=== PATIENT | male | born 1960 | race Caucasian/White ===

== ENCOUNTER 2023-08-22 07:38 | Day surgery (SDC) | payer MEDICARE ==
[2023-08-19 14:56] LABS: Absolute Basophils 0.1 K/uL (0-0.5); Absolute Eosinophils 0.1 K/uL (0-0.5); Absolute Lymphocytes (CBC) 1.2 K/uL (0.7-4.9); Absolute Monocytes 0.6 K/uL (0.1-1.3); Absolute Neutrophil 5.9 K/uL (1.8-8.0); Basophils % 0.9 % (0-1.3); Eosinophils % 1.7 % (0-4.4); Hemoglobin 15.3 g/dL (13.6-17.9); Lymphocytes % 15.3 % (15.3-44.8); MCH 32.9 pg (27.0-35.0); MCHC 33.3 g/dL (32.0-36.0); MCV 98.7 fL (80-100); MPV 9.6 fL (7.6-11.3); Monocytes % 7.3 % (3.3-12.3); Neutrophils % 74.8 % (41.7-73.7); Platelets 250 thou/uL (152-406); RBC Red Blood Cell Count 4.66 M/uL (4.33-5.43)
[2023-08-19 15:03] LABS: PT Prothrombin Time 12.5 SECONDS (9.5-12.5); PTT, Activated Partial Thromb 36.4 SECONDS (24.3-36.9); Protime INR 1.14
[2023-08-19 15:09] LABS: Anion Gap 7.6 mEq/L (5.0-15.0); Potassium 3.6 mEq/L (3.5-5.1)
--- NOTE | 2023-08-19 15:12 | RAD REPORT ---
EXAM DESCRIPTION: RAD - Chest Pa And Lat (2 Views) - 08/19/2023 2:56 pm CLINICAL HISTORY: PRE OP, smoker, hypertension COMPARISON: <Comparisons> FINDINGS: Lines: None. Lungs: 7 mm rounded nodule in the right mid lung. No acute process in the lungs identified. Pleural: No significant pleural effusions or pneumothorax. Cardiac: The heart size is within normal limits. Mediastinum: Within normal limits. Bones: No acute fractures. Other: None IMPRESSION: No acute cardiopulmonary disease. Right midlung nodule measuring 7 millimeters. This cou ld represent the patient's nipple. Consider repeat chest radiograph with nipple markers or evaluation with chest CT.
[2023-08-22] MEDS ORDERED: LIDOCAINE HCL/EPINEPHRINE 20 ML MDV ONE (07:49)
[2023-08-22] MEDS: NA CHLORIDE 0.9% 1,000 ML ONE (08:00)
[2023-08-22] MEDS ORDERED: MIDAZOLAM HCL 2 MG/2 ML INJ ONE (08:17)
[2023-08-22] MEDS ORDERED: ONDANSETRON 4 MG/2 ML VIAL ONE (08:17)
[2023-08-22] MEDS ORDERED: LIDOCAINE 2% MPF 5 ML VIAL ONE (08:17)
[2023-08-22] MEDS ORDERED: propofoL 200 MG/20 ML VIAL IV ONE (08:17)
[2023-08-22] MEDS ORDERED: FENTANYL CITR 100 MCG/2 ML ONE (08:17)
[2023-08-22] MEDS ORDERED: dexAMETHasone 10 MG/ML VIAL ONE (08:47)
[2023-08-22] MEDS: CEFAZOLIN SODIUM 1 GM/VIAL ONE (08:50)
[2023-08-22] MEDS ORDERED: EPHEDRINE SULF 50 MG/ML VIAL ONE (08:52)
--- NOTE | 2023-08-22 09:33 | P.BOP ---
Preoperative diagnosis: ulcerated scalp subQ mass Postoperative diagnosis: same Primary procedure: Excisional biopsy of ulcerated scalp subQ mass 3x2cm Estimated blood loss: <10cc Specimen: mass Findings: mass Anesthesia: General Complications: None Transferred to: Recovery Room Condition: Good
[2023-08-22 10:05] VITALS: TEMP 97
[2023-08-22 11:02] VITALS: BP 111/71; O2SAT 96
--- NOTE | 2023-08-22 16:04 | EKG ---
Test Date: 2023-08-19 Test Time: 14:45:23 Plastic Dolls Mold Filler: CD MEASUREMENT RESULTS: Intervals: Rate: 86 [place]: 136 QRSD: 130 QT: 418 QTc: 500 [place]: P: 45 [place]: 136 QRS: -68 T: 49 INTERPRETIVE STATEMENTS: Normal sinus rhythm Right bundle branch block Left anterior fascicular block Bifascicular block Septal infarct, age undetermined Abnormal ECG No previous ECG available for comparison Electronically Signed On 08-22-23 16:03:47 CDT by Tenzin Mccullough
--- NOTE | 2023-08-22 20:54 | OP ---
Date of Procedure: 08/22/2023 Surgeon: Stephon Anna MD Preoperative Diagnosis: Ulcerated scalp subcutaneous mass. Postoperative Diagnosis: Ulcerated scalp subcutaneous mass. Procedure: Excisional biopsy of ulcerated scalp subcutaneous mass 3 x 2 cm. Estimated Blood Loss: Less than 10 cc. Specimen: Mass. Anesthesia: General plus local. Complications: None. Indications: This is a case of a 63-year-old patient who came to us with this mass, which is not onl y going deep in the scalp, but also protruding almost like a horn like structure. He wants that exci sed. It is giving him pain, discomfort, bleeding. The benefits, alternatives, and risks of excision al biopsy, wide excision fully explained, which include, but not limited to, infection, bleeding, dam age to adjacent structures, anesthesia complication, recurrence, OH, and even . He also underst ands this may not relieve any symptoms. He might need more than one surgical intervention. He under stands the chance of alopecia in that area. He signed a consent. The area of concern was marked by me and the patient in the holding room. Description Of Procedure: Patient was brought to the operating room, placed in supine position. Ane sthesia was done without complications. Scalp area was prepped and draped in the usual sterile fashi on. Local anesthesia was applied followed by a wedge incision of the skin. Incision was carried brittany n to the galea. The mass was completely excised. Area was irrigated. Hemostasis was obtained and t hen we proceeded to close this with a combination of suture mattress 2-0 nylon interrupted multiple t imes. Patient tolerated the procedure well. No bleeding. The area was covered with sterile dressin gs. Patient sent to Recovery in stable condition. RHETT/VIKI Voice ID: [id number] Report ID: [id number]
--- NOTE | 2023-08-22 20:54 | DS ---
Date of Discharge: 08/22/2023 Diagnosis: Ulcerated scalp subcutaneous mass. Procedure: Excisional biopsy of ulcerated scalp subcutaneous mass. Disposition: Home. Condition: Stable. Activity: As tolerated. No heavy lifting. Plan: Follow up in my office in 1 week. Call for an appointment at [phone]. Keep area dry for 48 hours, then may shower. KEVIN Voice ID: [id number] Report ID: [id number]
== END 2023-08-22 10:37 | disposition home or self-care (01) ==
LOC: OR 07:38
PROVIDERS: ATTEND Surgery
PROC: 0HB0XZZ Excision of Scalp Skin, External Approach (ICD-10-PCS; principal; 2023-08-22 08:30)
DX: C44.42 Squamous cell carcinoma of skin of scalp and neck (principal); I10 Essential (primary) hypertension; E78.5 Hyperlipidemia, unspecified; F17.210 Nicotine dependence, cigarettes, uncomplicated
CPT/HCPCS: 93005; 85025; 80048; 36415; 85610; 82947 ×2; 88304; 85730; 71046; 11623; J2704; J2001; J3010; J1100; J2405; J7030; J0690; 88305; J2250

== ENCOUNTER 2024-03-14 15:43 | Inpatient (IN) | payer MEDICARE ==
--- NOTE | 2024-03-14 17:06 | RAD REPORT ---
EXAM: CT brain without contrast HISTORY: PAIN COMPARISON: None TECHNIQUE: Multiple contiguous axial images were obtained and a CT of the brain without contrast. Sag ittal and coronal reformats were performed. One or more of the following dose reduction techniques were used: Automated exposure control, adjust ment of the mA and/or kV according to patient size, and/or iterative reconstruction. FINDINGS: No evidence of hydrocephalus, intracranial hemorrhage, or extra-axial fluid collection. Moderate brain atrophy with moderate periventricular and deep white matter chronic microvascular isc hemic changes present. No evidence of midline shift or areas of brain edema. The calvarium is intact. The visualized paranasal sinuses and mastoid air cells are essentially clear . IMPRESSION: No evidence of acute intracranial abnormality. EXAM: CT of the cervical spine without contrast HISTORY: Neck pain, injury PAIN TECHNIQUE: Multiple contiguous axial images were obtained in a CT of the cervical spine without contr ast. Sagittal and coronal reformats were performed. FINDINGS: The vertebral bodies demonstrate normal height and alignment. No evidence of acute fracture or subluxation.. Mild lower cervical degenerative change. No prevertebral soft tissue swelling is seen. The posterior facets are well aligned. Normal alignment of the skull base with the cervical spine is seen. The lung apices are unremarkable. IMPRESSION: No evidence of acute osseous abnormality of the cervical spine.
--- NOTE | 2024-03-14 17:07 | RAD REPORT ---
EXAMINATION: ONE VIEW CHEST XR CLINICAL INDICATION: DYSPNEA TECHNIQUE: Frontal chest projection is submitted. Examination is limited by patient positioning and t echnique. COMPARISON: 08/19/2023 FINDINGS: Small calcified nodule in the right midlung is stable. Lungs otherwise clear. The heart is normal in size. No displaced fractures identified. IMPRESSION: No acute intrathoracic abnormalities.
--- NOTE | 2024-03-14 17:20 | RAD REPORT ---
EXAMINATION: CT LUMBAR SPINE WITHOUT CONTRAST CLINICAL INDICATION: Male, 63 years old. WEAKNESS TECHNIQUE: Axial CT images were obtained through the lumbar spine in soft tissue and bone windows wit hout intravenous contrast. Coronal and Sagittal reformatted images were created from the data set. One or more of the following dose reduction techniques were used: Automated exposure control, adjustm ent of the mA and/ or kV according to patient size, and/or iterative reconstruction. Unless otherwise specified, incidental findings do not require dedicated imaging follow-up. COMPARISON: No prior exam. FINDINGS: For purposes of this dictation, it is assumed that there are 5 non rib-bearing lumbar type vertebrae, and the most caudal fully segmented lumbar vertebra is labeled L5. ALIGNMENT: The lumbar spine demonstrates normal alignment without scoliosis or spondylolisthesis. BONES: No significant soft tissue abnormalities. No aggressive osseous lesions. DISCS: Multilevel vacuum disc degeneration is seen in the lower lumbar levels. LEVELS: Large calcified disc bulges are present L4-5 and L5-S1. This results in significant canal donnell rowing at the lower levels of the lumbar spine. SOFT TISSUE: Prominent sigmoid diverticulosis coli without diverticulitis. Bilateral iliac stents are in place. IMPRESSION: No acute lumbar spine abnormalities. Significant degenerative changes detailed lower lumbar spine with prominent hard discs.
[2024-03-14 17:36] LABS: Albumin 3.2 g/dL (3.4-5.0); Albumin/Globulin Ratio 0.8 (1.1-1.8); Anion Gap 5.7 mEq/L (5.0-15.0); Bilirubin Direct 0.2 mg/dL (0-0.2); Bilirubin Indirect, Calculated 0.7 mg/dL (0.2-0.8); Bilirubin Total 0.9 mg/dL (0.2-1.0); Globulin 3.8 g/dL (2.3-3.5); Potassium 3.7 mEq/L (3.5-5.1)
[2024-03-14 17:52] LABS: Troponin High Sensitivity 193.1 pg/mL (<58.9)
[2024-03-14 17:54] LABS: Absolute Basophils 0.1 K/uL (0-0.5); Absolute Eosinophils 0.2 K/uL (0-0.5); Absolute Lymphocytes (CBC) 0.9 K/uL (0.7-4.9); Absolute Monocytes 0.7 K/uL (0.1-1.3); Absolute Neutrophil 6.6 K/uL (1.8-8.0); Basophils % 0.8 % (0-1.3); Eosinophils % 1.8 % (0-4.4); Hematocrit 32.7 % (39.6-49.0); Hemoglobin 10.5 g/dL (13.6-17.9); MCH 28.8 pg (27.0-35.0); MCHC 32.2 g/dL (32.0-36.0); MCV 89.6 fL (80-100); MPV 9.5 fL (7.6-11.3); Monocytes % 8.3 % (3.3-12.3); Neutrophils % 78.1 % (41.7-73.7); Platelets 200 thou/uL (152-406); RBC Red Blood Cell Count 3.64 M/uL (4.33-5.43); Red Cell Distribution Width 16.1 % (12.1-15.2)
[2024-03-14] MEDS ORDERED: ONDANSETRON 4 MG (ODT) TAB PO PRN (19:36)
--- NOTE | 2024-03-14 19:50 | P.HP ---
Certification for Inpatient Patient admitted to: Observation With expected LOS: <2 Midnights Practitioner: I am a practitioner with admitting privileges, knowledge of patient current condition, hospital course, and medical plan of care. Services: Services provided to patient in accordance with Admission requirements found in Title 42 Section 412.3 of the Code of Federal Regulations Patient History Date of Service: 03/14/24 Reason for admission: elevated troponin, general weakness, REEMA History of Present Illness: 63-year-old man with a past medical history significant for COPD and diabetes presented to the emergency room complaining of falls that began 3 days ago. The patient is alert and oriented x 3. He reports several unwitnessed falls over the last 3 days. Today, the patient states his neighbor found him after a fall and helped him to the hospital. Patient resides alone, and states he has not been eating or drinking as of late because he feels "weak". He denies loss of consciousness with all falls. Head CT, CT of C-spine, and CT of L-spine performed in the emergency department revealed no abnormalities. Also, the patient was found to have elevated troponin this visit, but denies chest pain at this time. Allergies No Known Allergies Allergy (Unverified 08/19/23 14:20) Home medications list reviewed: Yes Home Medications: Atorvastatin Calcium [Lipitor] 40 mg PO BEDTIME 08/19/23 Carisoprodol [Soma] 350 mg PO BEDTIME PRN PRN 08/19/23 Clopidogrel Bisulfate [Plavix] 75 mg PO DAILY 08/19/23 Cyclobenzaprine HCl [Flexeril] 5 mg PO BEDTIME PRN PRN 08/19/23 Gabapentin 300 mg PO DAILY 08/19/23 Glipizide [Glipizide ER] 10 mg PO DAILY 08/19/23 Losartan Potassium [Cozaar] 50 mg PO DAILY 08/19/23 Pioglitazone HCl [Actos] 30 mg PO DAILY 08/19/23 Codeine/APAP [Tylenol W/Codeine #3 tab] 1 tab PO Q6HP PRN #1 tab 08/22/23 - Past Medical/Surgical History -: COPD -: DM Past Surgical History: Patient denies surgical history - Social History Smoking Status: Unknown if ever smoked Alcohol use: No Review of Systems General: Weakness Musculoskeletal: Arm Pain, Leg Pain Neurological: Weakness Physical Examination - Vital Signs Temperature: 98 F Blood Pressure: 127/76 Pulse: 92 Respirations: 18 Pulse Ox (%): 100 - Physical Exam General: Alert, Oriented x3 HEENT: Atraumatic, Normocephalic Neck: JVD not distended Respiratory: Normal air movement Cardiovascular: No gallops, No rubs, No murmurs Gastrointestinal: Normal bowel sounds, Non-distended Musculoskeletal: No swelling, No tenderness, No warmth Integumentary: Other (bruising noted in RUE and right leg consistent with recent fall history) Neurological: Normal speech, Normal strength at 5/5 x4 extr (except LLE- 4+/5), Sensation intact - Studies Laboratory Data (last 24 hrs) 03/14/24 03/14/24 17:44 17:02 WBC 8.40 Hgb 10.5 L Hct 32.7 L Plt Count 200 Sodium 138 Potassium 3.7 BUN 28 H Creatinine 1.54 H Glucose 108 H Total Bilirubin 0.9 AST 20 ALT 16 Alkaline Phosphatase 115 Assessment and Plan - Problems (Diagnosis) (1) Elevated troponin Current Visit: Yes Status: Acute (2) REEMA (acute kidney injury) Current Visit: Yes Status: Acute (3) Weakness generalized Current Visit: Yes Status: Acute - Plan Elevated troponin: Admit to observation with telemetry Will trend troponin Cardiology consulted REEMA: Elevated creatinine, will continue to trend Maintenance IV fluids CPK pending to rule out rhabdomyolysis General weakness: PT/OT consulted Heart healthy diet - Advance Directives Does patient have a Living Will: No Does patient have a Durable POA for Healthcare: No - Code Status/Comfort Care Code Status: Full Code
[2024-03-14] MEDS: NA CHLORIDE 0.9% 1,000 ML IV SCH (20:00)
--- NOTE | 2024-03-14 20:02 | ER ---
Nurse's Notes [facility] Name: Jake Laguerre Age: 63 yrs Sex: Male : 1960 Arrival Date: 03/14/2024 Time: 15:43 Bed 18 Private MD: Diagnosis: Muscle weakness (generalized);Acute kidney failure, unspecified;Fall on same level, unspecified Presentation: 03/14 15:51 Chief complaint: EMS states: patient having generalized weakness and multiple falls ko1 over last 3 days. Coronavirus screen: At this time, the client does not indicate any symptoms associated with coronavirus-19. Ebola Screen: No symptoms or risks identified at this time. Initial Sepsis Screen: Does the patient meet any 2 criteria? No. Patient's initial sepsis screen is negative. Does the patient have a suspected source of infection? No. Patient's initial sepsis screen is negative. Risk Assessment: Do you want to hurt yourself or someone else? Patient reports no desire to harm self or others. Onset of symptoms is unknown. Care prior to arrival: Medication(s) given: Normal saline infusion, 500 mL, IV initiated. 18 GA, in the right forearm, Glucose check: 179 Oxygen administered. via nasal cannula. 15:51 Method Of Arrival: EMS: [facility] ko1 15:51 Acuity: ALHAJI 3 ko1 Triage Assessment: 15:52 General: Appears unkempt, Behavior is cooperative, appropriate for age. Pain: Complains ko1 of pain in all over. EENT: No deficits noted. Neuro: Reports weakness in generalized. Cardiovascular: No deficits noted. Respiratory: No deficits noted. GI: No deficits noted. : No deficits noted. Derm: Bruising that is. Derm: multiple skin tears and bruises from falls. Musculoskeletal: Circulation, motion, and sensation intact. Injury Description: Bruise. Historical: - Allergies: 15:52 No Known Allergies; ko1 - PMHx: 15:52 Diabetes mellitus; ko1 - PSHx: 15:52 Unable to Obtain; ko1 - Immunization history:: Adult Immunizations unknown. - Infectious Disease History:: Denies. - Social history:: Smoking status: Patient reports the use of cigarette tobacco products, smokes two packs cigarettes per day. - History obtained from: EMS. Screenin:59 [facility] ED Fall Risk Assessment (Adult) History of falling in the last 3 months, ko1 including since admission Yes- fall prone (multiple falls) (3 pts) Confusion or Disorientation No (0 pts) Intoxicated or Sedated No (0 pts) Impaired Gait Yes (1 pt) Mobility Assist Device Used Yes (1 pt) Altered Elimination No (0 pt) Score/Fall Risk Level 3 or more points = High Risk Oriented to surroundings, Maintained a safe environment, Educated pt \T\ family on fall prevention, incl call for assistance when getting out of bed, Assessed \T\ reinforced patient's understanding of fall precautions, Provided non-skid footwear, Hourly rounding (assess needs \T\ fall precautionary measures) done, Used ambulatory aids as needed (educated on \T\ assisted with), Remained w/in arm's length of patient and in sight while toileting, Offered frequent toileting (1:1 observation), Remained with patient while ambulating, Utilized family, sitter, or virtual project manager as indicated. Abuse screen: Denies threats or abuse. Denies injuries from another. Nutritional screening: No deficits noted. Tuberculosis screening: No symptoms or risk factors identified. Assessment: 15:59 Reassessment: see triage note. ko1 20:57 Reassessment: Patient appears in no apparent distress at this time. Patient and/or bm8 family updated on plan of care and expected duration. Pain level reassessed. Patient is alert, oriented x 3, equal unlabored respirations, skin warm/dry/pink. Patient states feeling better. Patient states symptoms have improved. General: Appears in no apparent distress. comfortable. Neuro: No deficits noted. Level of Consciousness is awake, alert, obeys commands, Oriented to person, place, situation, Appropriate for age. Cardiovascular: Denies chest pain, Capillary refill < 3 seconds in bilateral fingers toes. Musculoskeletal: Reports pain in back Pain is 4 out of 10 on a pain scale. 22:24 Reassessment: pt is resting with eyes closed breathing is even unlabored at this time bm8 with symmetrical rise and fall of chest. Patient denies pain at this time. Vital Signs: 15:51 BP 142 / 87; Pulse 97; Resp 15; Temp 98.7(O); Pulse Ox 100% on R/A; ko1 16:15 BP 141 / 72; Pulse 92; Resp 16; Pulse Ox 96% on R/A; ko1 17:00 BP 154 / 83; Pulse 93; Resp 18; Pulse Ox 97% ; ko1 17:30 BP 134 / 80; Pulse 94; Resp 15; Pulse Ox 98% ; ko1 18:00 BP 135 / 81; Pulse 79; Resp 16; Pulse Ox 94% ; ko1 18:30 BP 145 / 68; Pulse 89; Resp 15; Pulse Ox 98% ; ko1 20:57 BP 148 / 83; Pulse 98; Resp 20; Temp 98.7; Pulse Ox 95% ; Pain 4/10; bm8 22:24 BP 144 / 77; Pulse 92; Resp 17; Temp 98.7; Pulse Ox 100% ; Pain 0/10; bm8 20:57 Pain Scale: Adult bm8 22:24 Pain Scale: Adult bm8 Birdie Coma Score: 20:57 Eye Response: spontaneous(4). Motor Response: obeys commands(6). Verbal Response: bm8 oriented(5). Total: 15. 22:24 Eye Response: spontaneous(4). Motor Response: obeys commands(6). Verbal Response: bm8 oriented(5). Total: 15. ED Course: 15:50 Patient arrived in ED. ko1 15:51 Tamica Coley, PHYLLIS is Primary Nurse. ko1 15:52 Triage completed. ko1 15:52 Arm band placed on right wrist. Patient placed in an exam room, on a stretcher, on ko1 horticulture teacher, on pulse oximetry, Patient notified of wait time. 15:56 Ryan Sue MD is Attending Physician. rn 15:57 Attending Physician role handed off by Ryan Sue MD ci 15:57 Nikita Salgado is Attending Physician. ci 15:59 Patient has correct armband on for positive identification. Fall risk band placed. ko1 Placed in gown. Bed in low position. Call light in reach. Side rails up X2. Provided Education on: labs, tests. Client placed on continuous cardiac and pulse oximetry monitoring. NIBP monitoring applied. equipment service associate on. Door closed. Noise minimized. Lights dimmed. Warm blanket given. Pillow given. 15:59 Maintain EMS IV. Dressing intact. Good blood return noted. Site clean \T\ dry. Gauge \T\ ko 1 site: 18g right FA. 16:43 CT Lumbar Spine Wo Con In Process Unspecified. EDMS 16:43 CT Head C Spine In Process Unspecified. EDMS 16:52 XRAY Chest (1 view) In Process Unspecified. EDMS 19:04 No provider procedures requiring assistance completed. ko1 19:58 Odilon Alexander MD is Hospitalizing Provider. ci 20:57 Patient admitted, IV remains in place. bm8 Administered Medications: 20:51 Drug: Aspirin PO 325 mg PO once Route: PO; mt4 20:59 Follow up: Response: No adverse reaction bm8 Medication: 18:30 VIS not applicable for this client. ko1 Outcome: 20:01 Decision to Hospitalize by Provider. ci 22:24 Admitted to ER Hold. Please see [facility] for further documentation. bm8 22:24 Condition: stable 22:24 Instructed on the need for admit, Demonstrated understanding of instructions, follow-up care, medications, 03/15 03:50 Patient left the ED. cp4 Signatures: Dispatcher [employer] EDGA Ryan Sue MD MD rn Oliver, Kathy RN RN ko1 Tierra Foster cp4 Nikita Salgado Ronan Mcgovern RN RN bm8 Josse Lou, RN RN mt4 Corrections: (The following items were deleted from the chart) 03/14 15:56 15:52 PMHx: Diabetes mellitus; ko1 ko1
--- NOTE | 2024-03-14 20:02 | EDPHYS ---
Physician Documentation [facility] Name: Jake Laguerre Age: 63 yrs Sex: Male : 1960 Arrival Date: 03/14/2024 Time: 15:43 Bed 18 Private MD: ED Physician Nikita Salgado HPI: 03/14 19:11 This 63 yrs old Male presents to ER via EMS with complaints of General Weakness. ci 19:11 Is a 63-year-old male with PMH diabetes, hyperlipidemia, BPH who presents to the ED ci with chief complaint of generalized weakness and frequent falls that began 3 days ago. Patient reports his leg gives out and he falls. Positive head strike, no LOC, not on blood thinners. Patient denies any chest pain, shortness of breath, nausea/vomiting. Historical: - Allergies: 15:52 No Known Allergies; ko1 - PMHx: 15:52 Diabetes mellitus; ko1 - PSHx: 15:52 Unable to Obtain; ko1 - Immunization history:: Adult Immunizations unknown. - Infectious Disease History:: Denies. - Social history:: Smoking status: Patient reports the use of cigarette tobacco products, smokes two packs cigarettes per day. - History obtained from: EMS. ROS: 19:11 Constitutional: Positive for fatigue, Negative for body aches, fever, ci 19:11 Cardiovascular: Negative for chest pain, edema, palpitations, 19:11 Respiratory: Negative for shortness of breath, wheezing, 19:11 Abdomen/GI: Negative for abdominal pain, nausea, vomiting, and diarrhea, 20:02 Neuro: Negative for headache, weakness, numbness, tingling, and seizure, ci Exam: 19:11 Constitutional: This is a well developed, well nourished patient who is awake, alert, ci and in no acute distress. Head/Face: Normocephalic, atraumatic. Eyes: Pupils equal round and reactive to light, extra-ocular motions intact. Lids and lashes normal. Conjunctiva and sclera are non-icteric and not injected. Cornea within normal limits. Periorbital areas with no swelling, redness, or edema. ENT: Nares patent. No nasal discharge, no septal abnormalities noted. Tympanic membranes are normal and external auditory canals are clear. Oropharynx with no redness, swelling, or masses, exudates, or evidence of obstruction, uvula midline. Mucous membranes moist. Skin: Warm, dry with normal turgor. Normal color with no rashes MS/ Extremity: Pulses equal, no cyanosis. Neurovascular intact. Full, normal range of motion. Neuro: Awake and alert, GCS 15, oriented to person, place, time, and situation. Cranial nerves II-XII grossly intact. Motor strength 5/5 in all extremities. Sensory grossly intact. Cerebellar exam normal. Normal gait. Vital Signs: 15:51 BP 142 / 87; Pulse 97; Resp 15; Temp 98.7(O); Pulse Ox 100% on R/A; ko1 16:15 BP 141 / 72; Pulse 92; Resp 16; Pulse Ox 96% on R/A; ko1 17:00 BP 154 / 83; Pulse 93; Resp 18; Pulse Ox 97% ; ko1 17:30 BP 134 / 80; Pulse 94; Resp 15; Pulse Ox 98% ; ko1 18:00 BP 135 / 81; Pulse 79; Resp 16; Pulse Ox 94% ; ko1 18:30 BP 145 / 68; Pulse 89; Resp 15; Pulse Ox 98% ; ko1 20:57 BP 148 / 83; Pulse 98; Resp 20; Temp 98.7; Pulse Ox 95% ; Pain 4/10; bm8 22:24 BP 144 / 77; Pulse 92; Resp 17; Temp 98.7; Pulse Ox 100% ; Pain 0/10; bm8 20:57 Pain Scale: Adult bm8 22:24 Pain Scale: Adult bm8 Birdie Coma Score: 20:57 Eye Response: spontaneous(4). Motor Response: obeys commands(6). Verbal Response: bm8 oriented(5). Total: 15. 22:24 Eye Response: spontaneous(4). Motor Response: obeys commands(6). Verbal Response: bm8 oriented(5). Total: 15. MDM: 15:56 Medical Screening Exam initiated rn 19:43 Differential Diagnosis Debility, dehydration, UTI, ACS, pneumonia,, rhabdomyolysis. ci 20:02 Differential Diagnosis. Data reviewed: vital signs, nurses notes. ci 20:02 ED course: Patient noted to have significant elevated troponin, 193. EKG shows normal ci sinus rhythm with PACs, right bundle branch block, no STEMI. Cardiology Dr. Mccullough was consulted. Will trend troponin. Patient reassessed, continues to deny chest pain. 03/14 16:00 Order name: Basic Metabolic Panel; Complete Time: 17:59 ci 03/14 16:00 Order name: CBC with Diff; Complete Time: 17:59 ci 03/14 16:00 Order name: Troponin HS; Complete Time: 17:59 ci 03/14 17:59 Interpretation: Abnormal: Troponin HS 193.1; NSTEMI vs Demand ischemia. ci 03/14 16:00 Order name: LFT's; Complete Time: 17:59 ci 03/14 16:00 Order name: Urinalysis w/ reflexes ci 03/14 19:04 Order name: CPK; Complete Time: 19:43 ci 03/14 19:43 Order name: Basic Metabolic Panel EDTX 03/14 19:43 Order name: CBC with Automated Diff EDTX 03/14 19:43 Order name: Creatine Phosphokinase EDTX 03/14 19:43 Order name: Lactate w/ 2H reflex if indic. EDTX 03/14 19:43 Order name: Magnesium EDTX 03/14 19:43 Order name: NT PRO-BNP EDTX 03/14 19:43 Order name: Phosphorus EDTX 03/14 19:44 Order name: Thyroid Stimulating Hormone EDTX 03/14 19:44 Order name: Urinalysis w/ reflexes EDTX 03/14 19:44 Order name: Lipid Profile EDTX 03/14 19:44 Order name: Lipid Profile EDTX 03/14 19:44 Order name: Troponin High Sensitivity EDTX 03/14 19:44 Order name: Troponin High Sensitivity EDTX 03/14 19:44 Order name: Troponin High Sensitivity EDTX 03/14 19:44 Order name: Troponin High Sensitivity EDTX 03/14 16:00 Order name: XRAY Chest (1 view); Complete Time: 17:59 ci 03/14 19:11 Interpretation: No acute disease. ci 03/14 16:00 Order name: CT Lumbar Spine Wo Con; Complete Time: 17:59 ci 03/14 18:00 Interpretation: No fx. ci 03/14 16:00 Order name: CT Head C Spine; Complete Time: 17:59 ci 03/14 19:43 Order name: CONS Physician Consult EDTX 03/14 19:43 Order name: Physical Therapy Consult EDTX 03/14 16:00 Order name: Cardiac monitoring; Complete Time: 17:04 ci 03/14 16:00 Order name: EKG - Nurse/Tech; Complete Time: 17:04 ci 03/14 16:00 Order name: IV Saline Lock; Complete Time: 17:04 ci 03/14 16:00 Order name: Labs collected and sent; Complete Time: 17:04 ci 03/14 16:00 Order name: O2 Per Protocol; Complete Time: 16:50 ci 03/14 16:00 Order name: O2 Sat Monitoring; Complete Time: 16:50 ci 03/14 17:23 Order name: Labs - recollect needed: lavender top only; Complete Time: 18:04 ss Administered Medications: 20:51 Drug: Aspirin PO 325 mg PO once Route: PO; mt4 20:59 Follow up: Response: No adverse reaction bm8 Disposition Summary: 03/14/24 20:01 Hospitalization Ordered Notes: Hospitalization Status: Inpatient Admission ci Provider: Odilon Alexander Condition: Fair ci Problem: new ci Symptoms: are unchanged ci Bed/Room Type: Standard ci Location: Telemetry/MedSurg (Inpatient)(03/15/24 02:21) Room Assignment: 404(03/15/24 02:21) Diagnosis - Muscle weakness (generalized) ci - Acute kidney failure, unspecified ci - Fall on same level, unspecified ci Forms: - Medication Reconciliation Form ci - SBAR form ci - Leadership Thank You Letter ci Signatures: Dispatcher [employer] EDDeandra Goode RN RN kl Nieto, Roman, MD MD rn Blanchard, Shelby, RN RN ss Able, Lacie, RN RN lg3 Tamica Coley RN RN ko1 Nikita Salgado Molinec, RN RN mt4 Ronan Mcgovern RN bm8 Corrections: (The following items were deleted from the chart) 15:56 15:52 PMHx: Diabetes mellitus; ko1 ko1 16:00 16:00 BASIC METABOLIC PANEL+C.LAB.BRZ ordered. EDMS EDMS 16:00 16:00 CBC+H.LAB.BRZ ordered. EDMS EDMS 16:00 16:00 Troponin High Sensitivity+C.LAB.BRZ ordered. EDMS EDMS 16:00 16:00 HEPATIC FUNCTION+C.LAB.BRZ ordered. EDMS EDMS 16:00 16:00 Urinalysis+U.LAB.BRZ ordered. EDMS EDMS 16:00 16:00 Chest Single View+RAD.RAD.BRZ ordered. EDMS EDMS 16:00 16:00 Spine Lumbar Wo Con+CT.RAD.BRZ ordered. EDMS EDMS 16:00 16:00 Head C Spine MPR Wo Con+CT.RAD.BRZ ordered. EDMS EDMS 20:02 19:43 Differential Diagnosis Debility, dehydration, UTI, ACS, pneumonia,. ci ci 21:34 20:01 Telemetry/MedSurg (Inpatient) ci lg3 21:34 20:01 ci lg3 03/15 02:21 03/14 21:34 [facility] ER HOLD lg3 kl 03/15 02:21 03/14 21:34 ERHOLD- lg3 kl
[2024-03-14] MEDS ORDERED: ASPIRIN 325 MG TAB ONE (20:50)
[2024-03-14] MEDS: HEPARIN 5000 UNIT/ML 1 ML VIAL IV SCH (21:00)
[2024-03-14] MEDS ORDERED: NA CHLORIDE 0.9% 1,000 ML ONE (22:45)
[2024-03-14] MEDS ORDERED: HEPARIN 5000 UNIT/ML 1 ML VIAL ONE (22:45)
[2024-03-14] MEDS: TRAZODONE 50 MG TABLET PO SCH (23:30)
[2024-03-14] MEDS ORDERED: ZOLPIDEM TARTRATE 5 MG TABLET ONE (23:58)
[2024-03-15] MEDS: ZOLPIDEM TARTRATE 5 MG TABLET PO PRN (00:01)
[2024-03-15 01:09] VITALS: BMI 25.0
[2024-03-15] MEDS ORDERED: FLU (Fluarix Triv) TS24-25(6MOS UP)/PF 45 MCG/0.5 ML Syringe IM ONE (07:15)
[2024-03-15 07:32] LABS: Specific Gravity 1.028 (1.005-1.030); Sqamous Epithelial <5 /HPF (None Seen); Urine Bacteria None Seen /HPF (<20); Urine Bilirubin NEGATIVE (Negative); Urine Blood Negative (Negative); Urine Clarity Extremely Turbid (Clear); Urine Color Yellow (Yellow); Urine Culture Reflex Order REFLEXED; Urine Glucose TRACE (Negative); Urine Ketones NEGATIVE (Negative); Urine Microscopic Reflex YN ORDER UMIC; Urine Mucus 2+ /HPF (None Seen); Urine Nitrite NEGATIVE (Negative); Urine Protein TRACE (Negative); Urine RBC <5 /HPF (None Seen); Urine Urobilinogen 1+ (Normal); Urine pH 5.5 (5.0-7.0)
[2024-03-15] MEDS ORDERED: PNEUMOCOCCAL VACCINE 0.5 ML IMVAC ONE (08:00)
[2024-03-15] MEDS: HEPARIN 5000 UNIT/ML 1 ML VIAL SQ SCH (08:25)
[2024-03-15] MEDS ORDERED: ENOXAPARIN 40 MG/0.4 ML SQ SCH (09:00)
[2024-03-15 09:37] LABS: Absolute Basophils 0.1 K/uL (0-0.5); Absolute Eosinophils 0.3 K/uL (0-0.5); Absolute Lymphocytes (CBC) 0.7 K/uL (0.7-4.9); Absolute Monocytes 0.6 K/uL (0.1-1.3); Absolute Neutrophil 5.6 K/uL (1.8-8.0); Basophils % 0.8 % (0-1.3); Eosinophils % 3.8 % (0-4.4); Hematocrit 30.5 % (39.6-49.0); Lymphocytes % 9.9 % (15.3-44.8); MCH 29.3 pg (27.0-35.0); MCHC 32.6 g/dL (32.0-36.0); MCV 89.8 fL (80-100); MPV 9.5 fL (7.6-11.3); Monocytes % 8.7 % (3.3-12.3); Neutrophils % 76.8 % (41.7-73.7); Platelets 187 thou/uL (152-406); Red Cell Distribution Width 15.5 % (12.1-15.2)
[2024-03-15 09:48] VITALS: O2SAT 98
[2024-03-15 09:59] LABS: Troponin High Sensitivity 88.1 pg/mL (<58.9)
[2024-03-15 10:02] LABS: Anion Gap 7.7 mEq/L (5.0-15.0); Magnesium 2.3 mg/dL (1.6-2.4); Phosphorus 2.9 mg/dL (2.5-4.9); Potassium 3.7 mEq/L (3.5-5.1); Thyroid Stimulating Hormone 0.684 uIU/mL (0.358-3.740)
--- NOTE | 2024-03-15 10:26 | P.CNS ---
Date of Consult: 03/15/24 Chief Complaint: elevated troponin, general weakness, REEMA History of Present Illness: Patient with PMH of HTN, DM, presented with generalized weakness, repeated falls, unable to move around due to leg weakness, denies having chest pain, no palpitations, no SOB, no syncope. Allergies No Known Allergies Allergy (Unverified 08/19/23 14:20) Home medications list reviewed: Yes Home Medications: Atorvastatin Calcium [Lipitor] 40 mg PO BEDTIME 08/19/23 Carisoprodol [Soma] 350 mg PO BEDTIME PRN PRN 08/19/23 Clopidogrel Bisulfate [Plavix] 75 mg PO DAILY 08/19/23 Cyclobenzaprine HCl [Flexeril] 5 mg PO BEDTIME PRN PRN 08/19/23 Gabapentin 300 mg PO DAILY 08/19/23 Glipizide [Glipizide ER] 10 mg PO DAILY 08/19/23 Losartan Potassium [Cozaar] 50 mg PO DAILY 08/19/23 Pioglitazone HCl [Actos] 30 mg PO DAILY 08/19/23 Codeine/APAP [Tylenol W/Codeine #3 tab] 1 tab PO Q6HP PRN #1 tab 08/22/23 - Past Medical/Surgical History -: COPD -: DM - Social History Smoking Status: Current every day smoker Alcohol use: No Review of Systems 10-point ROS is otherwise unremarkable Physical Examination Temp Pulse Resp BP Pulse Ox 97.6 F 86 20 166/74 H 98 03/15/24 08:00 03/15/24 08:00 03/15/24 08:00 03/15/24 08:00 03/15/24 08:00 General: Alert, In no apparent distress HEENT: Atraumatic, PERRLA, Mucous membr. moist/pink, EOMI, Sclerae nonicteric Neck: Supple, 2+ carotid pulse no bruit, No LAD, Without JVD or thyroid abnormality Respiratory: Clear to auscultation bilaterally, Normal air movement Cardiovascular: Regular rate/rhythm, Normal S1 S2 Gastrointestinal: Normal bowel sounds, No tenderness Musculoskeletal: No tenderness Integumentary: No rashes Neurological: Normal gait, Normal speech, Normal tone, Normal affect Lymphatics: No axilla or inguinal lymphadenopathy Laboratory Data (last 24 hrs) 03/14/24 03/14/24 17:44 17:02 WBC 8.40 Hgb 10.5 L Hct 32.7 L Plt Count 200 Sodium 138 Potassium 3.7 BUN 28 H Creatinine 1.54 H Glucose 108 H Total Bilirubin 0.9 AST 20 ALT 16 Alkaline Phosphatase 115 - Problems (1) HTN (hypertension) Current Visit: Yes Status: Acute Plan: resume patient home medications. (2) HLD (hyperlipidemia) Current Visit: Yes Status: Acute Plan: continue lipitor 40 mg daily (3) Elevated troponin Current Visit: Yes Status: Acute Plan: Type 2 DC from REEMA, repeated falls and dehydration, Patient denies having chest pain, Troponin mild elevated and trending down, no significant delta. ASA 81 mg daily Lipitor 40 mg daily Control BP get echo
--- NOTE | 2024-03-15 11:08 | EKG ---
Test Date: 2024-03-14 Test Time: 16:58:08 Hot Billet Shear Operator: LUZ MEASUREMENT RESULTS: Intervals: Rate: 90 CT: 130 QRSD: 138 QT: 402 QTc: 491 [place]: P: 58 CT: 130 QRS: -63 T: 65 INTERPRETIVE STATEMENTS: Sinus rhythm with premature atrial complexes Right bundle branch block Left anterior fascicular block Bifascicular block Septal infarct, age undetermined Abnormal ECG Compared to ECG 08/19/2023 14:45:23 Atrial premature complex(es) now present Bifascicular block still present Myocardial infarct finding still present Electronically Signed On 03-15-24 11:07:14 CDT by Brendan Lima
[2024-03-15] MEDS: FLU (Fluarix Triv) TS24-25(6MOS UP)/PF 45 MCG/0.5 ML Syringe IM ONE (14:00)
[2024-03-15] MEDS: PNEUMOCOCCAL VACCINE 0.5 ML IMVAC ONE (14:00)
[2024-03-15] MEDS: PREGABALIN 50 MG CAP PO ONE (16:34)
[2024-03-15] MEDS ORDERED: METOPROLOL TARTRATE 5 MG/5 ML INJ IV PRN (17:16)
[2024-03-15] MEDS: LOSARTAN POTASSIUM 50 MG TABLET PO SCH (17:25)
[2024-03-15] MEDS: PREGABALIN 75 MG CAP PO SCH (21:15)
[2024-03-15] MEDS: ATORVASTATIN 40 MG TAB PO SCH (21:15)
[2024-03-16 06:36] LABS: Absolute Eosinophils 0.3 K/uL (0-0.5); Absolute Lymphocytes (CBC) 1.1 K/uL (0.7-4.9); Absolute Monocytes 0.6 K/uL (0.1-1.3); Absolute Neutrophil 5.1 K/uL (1.8-8.0); Basophils % 0.5 % (0-1.3); Eosinophils % 4.3 % (0-4.4); Hematocrit 28.4 % (39.6-49.0); Hemoglobin 9.3 g/dL (13.6-17.9); Lymphocytes % 15.3 % (15.3-44.8); MCH 29.2 pg (27.0-35.0); MCHC 32.8 g/dL (32.0-36.0); MCV 89.2 fL (80-100); Monocytes % 8.7 % (3.3-12.3); Neutrophils % 71.2 % (41.7-73.7); Platelets 177 thou/uL (152-406); RBC Red Blood Cell Count 3.18 M/uL (4.33-5.43); Red Cell Distribution Width 15.7 % (12.1-15.2)
[2024-03-16 06:39] LABS: Albumin 2.8 g/dL (3.4-5.0); Anion Gap 8.6 mEq/L (5.0-15.0); Phosphorus 3.2 mg/dL (2.5-4.9); Potassium 3.6 mEq/L (3.5-5.1)
[2024-03-16 06:43] LABS: Troponin High Sensitivity 68.6 pg/mL (<58.9)
[2024-03-16] MEDS: POTASSIUM CL SA 10 MEQ TAB PO ONE (10:57)
[2024-03-16] MEDS: ACETAMINOPHEN 325 MG TABLET PO PRN (11:07)
[2024-03-16 17:53] VITALS: BP 177/86; TEMP 97.8
--- NOTE | 2024-03-18 19:24 | P.DS ---
Admission Date: 03/14/24 Discharge Date: 03/16/24 Disposition: ROUTINE DISCHARGE Discharge Condition: GOOD Reason for Admission: elevated troponin, general weakness, REEMA Brief History of Present Illness: 63-year-old man with a past medical history significant for COPD and diabetes presented to the emergency room complaining of falls that began 3 days ago. The patient is alert and oriented x 3. He reports several unwitnessed falls over the last 3 days. Today, the patient states his neighbor found him after a fall and helped him to the hospital. Patient resides alone, and states he has not been eating or drinking as of late because he feels "weak". He denies loss of consciousness with all falls. Head CT, CT of C-spine, and CT of L-spine performed in the emergency department revealed no abnormalities. Also, the patient was found to have elevated troponin this visit, but denies chest pain at this time. - Physical Exam General: Alert, Oriented x3 HEENT: Atraumatic, Normocephalic Neck: JVD not distended Respiratory: Normal air movement Cardiovascular: No gallops, No rubs, No murmurs Gastrointestinal: Normal bowel sounds, Non-distended Musculoskeletal: No swelling, No tenderness, No warmth Integumentary: Other (bruising noted in RUE and right leg consistent with recent fall history) Neurological: Normal speech, Normal strength at 5/5 x4 extr (except LLE- 4+/5), Sensation intact Hospital Course: 63-year-old man with a past medical history significant for COPD and diabetes presented to the emergency room complaining of falls that began 3 days ago. The patient is alert and oriented x 3. He reports several unwitnessed falls over the last 3 days. Today, the patient states his neighbor found him after a fall and helped him to the hospital. Patient resides alone, and states he has not been eating or drinking as of late because he feels "weak". He was noted to have elevated troponin, acute kidney injury, generalized weakness. Cardiology was consulted, he had elevated CK, was treated with IV fluids, PT OT was consulted, he improved, tolerating diet, stable to discharge home, follow-up with PCP, cardiology after discharge Discharge medication Lyrica twice daily, Hydrocodone 1 every 6 hours for pain Repeated falls, lower extremity weakness, evaluated by PT OT Elevated troponin likely secondary to OH type II, per cardiology CT of the head no acute abnormality, mild lower cervical degenerative changes, Lumbar CT no acute abnormality, significant degenerative changes of the lumbar spine, Continue home medicines as previously prescribed GOAL: Clear understanding of disease process INSTRUCTIONS: Physician Discharge Instructions: -Follow-up with cardiology after discharge, call office for appointment -Follow-up with PCP in 1 to 2 weeks -Please call Dr. Alexander at [phone] if any questions regarding hospital stay -Please call nursing station at [phone] if any nursing or medication questions -Return to the emergency room if symptoms worsen Diet: ADA, low sodium Activity: Fall precautions Vital Signs/Physical Exam: Temp Pulse Resp BP Pulse Ox 97.8 F 72 18 177/86 H 99 03/16/24 16:00 03/16/24 16:00 03/16/24 16:00 03/16/24 16:00 03/16/24 16:00 Laboratory Data at Discharge: WBC 7.10 thou/uL (4.3-10.9) 03/16/24 05:42 Hgb 9.3 g/dL (13.6-17.9) L 03/16/24 05:42 Hct 28.4 % (39.6-49.0) L 03/16/24 05:42 Plt Count 177 thou/uL (152-406) 03/16/24 05:42 Sodium Cancelled 03/16/24 Unknown Potassium Cancelled 03/16/24 Unknown BUN Cancelled 03/16/24 Unknown Creatinine Cancelled 03/16/24 Unknown Glucose Cancelled 03/16/24 Unknown Phosphorus Cancelled 03/16/24 Unknown Magnesium 2.3 mg/dL (1.6-2.4) 03/15/24 09:25 Total Bilirubin 0.9 mg/dL (0.2-1.0) 03/14/24 17:02 AST 20 U/L (15-37) 03/14/24 17:02 ALT 16 U/L (16-61) 03/14/24 17:02 Alkaline Phosphatase 115 U/L (45-117) 03/14/24 17:02 Triglycerides 66 mg/dL (<150) 03/15/24 09:25 Cholesterol 98 mg/dL (<200) 03/15/24 09:25 HDL Cholesterol 40 mg/dL (40-60) 03/15/24 09:25 Cholesterol/HDL Ratio 2.45 03/15/24 09:25 Home Medications: Atorvastatin Calcium [Lipitor] 40 mg PO BEDTIME 08/19/23 Carisoprodol [Soma] 350 mg PO BEDTIME PRN PRN 08/19/23 Clopidogrel Bisulfate [Plavix*] 75 mg PO DAILY 08/19/23 Cyclobenzaprine HCl [Flexeril] 5 mg PO BEDTIME PRN PRN 08/19/23 Gabapentin 300 mg PO DAILY 08/19/23 Glipizide [Glipizide ER] 10 mg PO DAILY 08/19/23 Losartan Potassium [Cozaar*] 50 mg PO DAILY 08/19/23 Pioglitazone HCl [Actos] 30 mg PO DAILY 08/19/23 Codeine/APAP [Tylenol #3*] 1 tab PO Q6HP PRN #1 tab 08/22/23 Hydrocodone 10/APAP 325 [[place] 10/325] 1 tab PO Q6H PRN #20 tab 03/16/24 Meloxicam 1 tab PO DAILY PRN 03/16/24 Pregabalin [Lyrica] 75 mg PO BID #60 cap 03/16/24 New Medications: Pregabalin [Lyrica] 75 mg PO BID #60 cap Hydrocodone 10/APAP 325 [[place]ent[place] 10/325] 1 tab PO Q6H PRN #20 tab PRN Reason: Pain Physician Discharge Instructions: Continue home medicines as previously prescribed GOAL: Clear understanding of disease process INSTRUCTIONS: Physician Discharge Instructions: -Follow-up with PCP in 1 to 2 weeks -Please call Dr. Alexander at [phone] if any questions regarding hospital stay -Please call nursing station at [phone] if any nursing or medication questions -Return to the emergency room if symptoms worsen Diet: ADA, low sodium Activity: Fall precautions Diet: AHA Activity: Fall precautions Followup: Jake Heath DO [Primary Care Provider] - 1-2 Weeks Time spent managing pt's care (in minutes): 45
== END 2024-03-16 18:20 | disposition home or self-care (01) | DRG 682 ==
LOC: ER 15:43 → ERHOLD 19:36 → 4TH 03-15 02:40 → OBSVTOIN 03-16 08:43
PROVIDERS: ADMIT Hospitalist; ATTEND Hospitalist
DX: N17.9 Acute kidney failure, unspecified (principal); I21.A1 Myocardial infarction type 2; J44.9 Chronic obstructive pulmonary disease, unspecified; E11.9 Type 2 diabetes mellitus without complications; I10 Essential (primary) hypertension; E78.5 Hyperlipidemia, unspecified; E86.0 Dehydration; I45.10 Unspecified right bundle-branch block; N40.0 Benign prostatic hyperplasia without lower urinary tract symptoms; F17.210 Nicotine dependence, cigarettes, uncomplicated; R29.6 Repeated falls; Z60.2 Problems related to living alone; Z91.81 History of falling; Z79.02 Long term (current) use of antithrombotics/antiplatelets; Z79.84 Long term (current) use of oral hypoglycemic drugs; Z79.899 Other long term (current) drug therapy
CPT/HCPCS: 36415; 70450; 71045; 72125; 72131; 80048; 80061; 80069; 80076; 81001; 82550; 82947; 83605; 83735; 83880; 84100; 84443; 84484; 85025; 87077; 87086; 87088; 87186; 93005; 97161; 97530; 99285; G0378; J1644; J7030

== ENCOUNTER 2024-04-10 12:20 | Emergency (ER) | payer MEDICARE ==
[2024-04-10] MEDS ORDERED: SMZ./TMP. 800/160 MG TABLET ONE (12:41)
--- NOTE | 2024-04-10 12:46 | EDPHYS ---
Physician Documentation [facility] Name: Jake Laguerre Age: 63 yrs Sex: Male : 1960 Arrival Date: 04/10/2024 Time: 12:20 Bed 8 Private MD: ED Physician Ryan Sue HPI: 04/10 12:39 This 63 yrs old Male presents to ER via Ambulatory with complaints of Knee Pain. rn 12:39 The patient presents with pain, that is acute. The complaints affect the right knee. rn Onset: The symptoms/episode began/occurred 2 week(s) ago. Modifying factors: The symptoms are alleviated by nothing. the symptoms are aggravated by nothing. Severity of symptoms: At their worst the symptoms were mild, in the emergency department the symptoms are unchanged. The patient has not experienced similar symptoms in the past. The patient has been recently seen by a physician:. Patient reports fall 2 weeks ago, does not feel like he broke anything but had to crawl on his knees and sustained an abrasion to right knee. Reports has been ambulatory since then, 2 weeks has passed with increasing erythema and warmth prepatellar region. No fever or chills. No pain or swelling of the internal knee. Seen by PCP today and sent here for evaluation. Patient ambulated into emergency room without assistance. Historical: - Allergies: 12:24 No Known Allergies; ap3 - PMHx: 12:24 diabetes mellitus; ap3 - Immunization history:: Client reports having NOT received the Covid vaccine. - Infectious Disease History:: Denies. - Social history:: Smoking status: Patient reports the use of cigarette tobacco products, smokes 1.5 packs per day, Patient uses street drugs, marijuana. - Family history:: not pertinent. - Hospitalizations: : No recent hospitalization is reported. ROS: 12:39 Constitutional: Negative for fever, chills, and weight loss, MS/Extremity: Positive for rn right knee skin swelling and warmth Exam: 12:39 Constitutional: This is a well developed, well nourished patient who is awake, alert, rn and in no acute distress. Ambulatory to emergency room without assistance Cardiovascular: Regular rate and rhythm. No pulse deficits. Respiratory: No increased work of breathing, no retractions or nasal flaring. MS/ Extremity: Pulses equal, no cyanosis. Neurovascular intact. Full, normal range of motion. Equal circumference. Full range of motion of right knee. No knee effusion noted. Mild erythema that blanches with warmth prepatellar skin. No fluctuance or evidence of abscess. Small abrasion prepatellar skin. Vital Signs: 12:23 BP 179 / 85; Pulse 89; Resp 18; Temp 97.6; Pulse Ox 100% on R/A; Weight 86.64 kg; ap3 Height 6 ft. 1 in. ; Pain 4/10; 12:51 BP 142 / 84; Pulse 92; Resp 18; Pulse Ox 98% on R/A; ap3 12:23 Body Mass Index 25.20 (86.64 kg, 185.42 cm) ap3 12:23 Pain Scale: Adult ap3 MDM: 12:22 Medical Screening Exam initiated rn 12:39 Differential diagnosis: contusion, abrasion, Cellulitis. Data reviewed: vital signs, rn nurses notes, and as a result, I will discharge patient. Counseling: I had a detailed discussion with the patient and/or guardian regarding the historical points, exam findings, and any diagnostic results supporting the discharge/admit diagnosis, the need for outpatient follow up, to return to the emergency department if symptoms worsen or persist or if there are any questions or concerns that arise at home. Special discussion: I discussed with the patient/guardian in detail that at this point there is no indication for admission to the hospital. It is understood, however, that if the symptoms persist or worsen the patient needs to return immediately for re-evaluation. 12:39 ED course: Patient with prepatellar cellulitis. No indication for knee aspiration as rn there is no knee effusion or any limitation of range of motion at all. Will put on antibiotics and have him follow-up with PCP.. Administered Medications: 12:43 Drug: Trimethoprim-Sulfamethoxazole PO (160 mg-800 mg (DS) 1 tablet PO once Route: PO; ap3 12:52 Follow up: Response: No adverse reaction ap3 Disposition Summary: 04/10/24 12:45 Discharge Ordered Notes: Location: Home rn Problem: an ongoing problem rn Symptoms: are unchanged rn Condition: Stable rn Diagnosis - Cellulitis of right lower limb rn Followup: rn - With: Private Physician - When: As needed - Reason: Recheck today's complaints, Re-evaluation by your physician Discharge Instructions: - Discharge Summary Sheet rn - Cellulitis, Adult rn Forms: - Medication Reconciliation Form rn - Antibiotic earth burner - Prescription Opioid Use rn - Patient Portal Instructions rn - Leadership Thank You Letter rn Prescriptions: - Bactrim DS 800-160 mg Oral Tablet - take 1 tablet ORAL route every 12 hours for 10 days; 20 tablet; Refills: 0, rn Product Selection Permitted Signatures: Ryan Sue MD MD rn Prokisch, Amanda, RN RN ap3
--- NOTE | 2024-04-10 12:46 | ER ---
Nurse's Notes [facility] Name: Jake Laguerre Age: 63 yrs Sex: Male : 1960 Arrival Date: 04/10/2024 Time: 12:20 Bed 8 Private MD: Diagnosis: Cellulitis of right lower limb Presentation: 04/10 12:23 Chief complaint: Patient states: he rolled out of bed onto his right knee approx 2 ap3 weeks ago, and is complaining of continued right knee pain. patient currently rates the pain as a 4/10 on the pain scale. Coronavirus screen: At this time, the client does not indicate any symptoms associated with coronavirus-19. Ebola Screen: No symptoms or risks identified at this time. Initial Sepsis Screen: Does the patient meet any 2 criteria? No. Patient's initial sepsis screen is negative. Does the patient have a suspected source of infection? No. Patient's initial sepsis screen is negative. Risk Assessment: Do you want to hurt yourself or someone else? Patient reports no desire to harm self or others. Onset of symptoms is unknown. 12:23 Method Of Arrival: Ambulatory ap3 12:23 Acuity: ALHAJI 4 ap3 Triage Assessment: 12:25 General: Appears in no apparent distress. Behavior is calm, cooperative, appropriate ap3 for age. Pain: Complains of pain in right knee Pain currently is 4 out of 10 on a pain scale. Pain began gradually. Neuro: Level of Consciousness is awake, alert, obeys commands, Oriented to person, place, time, situation, Appropriate for age. Cardiovascular: Patient's skin is warm and dry. Respiratory: Airway is patent Respiratory effort is even, unlabored, Respiratory pattern is regular, symmetrical. Musculoskeletal: Reports pain in right knee. Historical: - Allergies: 12:24 No Known Allergies; ap3 - PMHx: 12:24 diabetes mellitus; ap3 - Immunization history:: Client reports having NOT received the Covid vaccine. - Infectious Disease History:: Denies. - Social history:: Smoking status: Patient reports the use of cigarette tobacco products, smokes 1.5 packs per day, Patient uses street drugs, marijuana. - Family history:: not pertinent. - Hospitalizations: : No recent hospitalization is reported. Screenin:25 [facility] ED Fall Risk Assessment (Adult) History of falling in the last 3 months, ap3 including since admission Yes- fall prone (multiple falls) (3 pts) Confusion or Disorientation No (0 pts) Intoxicated or Sedated No (0 pts) Impaired Gait Yes (1 pt) Mobility Assist Device Used No (0 pt) Altered Elimination No (0 pt) Score/Fall Risk Level 3 or more points = High Risk Oriented to surroundings, Maintained a safe environment, Educated pt \T\ family on fall prevention, incl call for assistance when getting out of bed, Assessed \T\ reinforced patient's understanding of fall precautions, Hourly rounding (assess needs \T\ fall precautionary measures) done, Used ambulatory aids as needed (educated on \T\ assisted with), Used gait belt as appropriate Implemented a Fall Risk Plan of Care, Apply high fall risk patient identification: yellow non skid footwear/ fall signage, Remained w/in arm's length of patient and in sight while toileting, Offered frequent toileting (1:1 observation), Remained with patient while ambulating. Abuse screen: Denies threats or abuse. Nutritional screening: No deficits noted. Tuberculosis screening: No symptoms or risk factors identified. Vital Signs: 12:23 BP 179 / 85; Pulse 89; Resp 18; Temp 97.6; Pulse Ox 100% on R/A; Weight 86.64 kg; ap3 Height 6 ft. 1 in. ; Pain 4/10; 12:51 BP 142 / 84; Pulse 92; Resp 18; Pulse Ox 98% on R/A; ap3 12:23 Body Mass Index 25.20 (86.64 kg, 185.42 cm) ap3 12:23 Pain Scale: Adult ap3 ED Course: 12:22 Patient arrived in ED. im 12:22 Ryan Sue MD is Attending Physician. rn 12:24 Triage completed. ap3 12:26 Arm band placed on right wrist. ap3 12:26 Patient has correct armband on for positive identification. Bed in low position. Call ap3 light in reach. Side rails up X 1. Provided Education on: call light education. Pulse ox on. NIBP on. 12:38 Mag Lou, PHYLLIS is Primary Nurse. ap3 12:52 No provider procedures requiring assistance completed. Patient did not have IV access ap3 during this emergency room visit. Administered Medications: 12:43 Drug: Trimethoprim-Sulfamethoxazole PO (160 mg-800 mg (DS) 1 tablet PO once Route: PO; ap3 12:52 Follow up: Response: No adverse reaction ap3 Medication: 12:52 VIS not applicable for this client. ap3 Outcome: 12:45 Discharge ordered by . rn 12:52 Discharged to home ambulatory, ap3 12:52 Condition: good 12:52 Discharge instructions given to patient, Instructed on discharge instructions, follow up and referral plans. medication usage, Demonstrated understanding of instructions, follow-up care, medications, Prescriptions given X 1, 12:56 Patient left the ED. ap3 Signatures: Ryan Sue MD MD rn Mag Lou RN RN ap3 Lynda Thorpe
[2024-04-10 15:58] VITALS: TEMP 97.6
[2024-04-10 15:59] VITALS: BP 142/84; O2SAT 98
== END 2024-04-10 12:56 | disposition home or self-care (01) ==
LOC: ER 12:20
DX: L03.115 Cellulitis of right lower limb (principal); F17.210 Nicotine dependence, cigarettes, uncomplicated; Z28.310 Unvaccinated for COVID-19
CPT/HCPCS: 99283